=== PATIENT | male | born 1945 | race Caucasian/White ===

== ENCOUNTER 2017-12-12 08:18 | Inpatient (IN) | payer MEDICARE, MEDICAID ==
[~2017-12-12] VITALS: Ht 175.3 cm; Wt 69.0 kg
[2017-12-12] MEDS ORDERED: FERR324T4 PO (19:14)
[2017-12-12] MEDS ORDERED: CARD8TAB PO (19:14)
[2017-12-12] MEDS ORDERED: SYMB80AE INH (19:14)
[2017-12-12] MEDS ORDERED: TAMS0.4C4 PO (19:14)
[2017-12-12] MEDS ORDERED: INSULIN PEN (19:14)
[2017-12-13] MEDS ORDERED: METOCLOPRAMIDE HCL 10 MG/2 ML VIAL IV PUSH PRN
[2017-12-13] MEDS ORDERED: PROCHLORPERAZINE 25 MG SUPP RECTAL PRN
[2017-12-13] MEDS ORDERED: NALOXONE HCL 0.4 MG/ML AMP IV PUSH PRN
[2017-12-13] MEDS ORDERED: DEXTROSE 50% IN WATER 50 ML VIAL(D50) IV PUSH PRN (00:15)
[2017-12-13] MEDS ORDERED: GLUCAGON 1 MG/ML VIAL OTHER PRN (00:15)
[2017-12-13] MEDS ORDERED: RESP: ALBUTEROL 2.5 MG/IPRATROPIUM 0.5 MG NEB (PRN) NEB (00:15)
[2017-12-13 08:00] VITALS: BP 99/69; PULSE 91; RESP 18; TEMP 96.9; O2SAT 95
[2017-12-13] MEDS: INSULIN ASPART SUPPLEMENTAL SCALE SQ SCH ×4 (09:24→21:00)
[2017-12-13] MEDS: SODIUM CHLORIDE 0.9% FLUSH 10 ML FLUSH IV FLUSH SCH ×2 (09:25→21:56)
--- NOTE | 2017-12-13 10:31 | HHI.HP ---
HPI Service [facility] Hospitalists Primary Care Physician Unknown Admission Diagnosis Diagnoses: Travel History International Travel<30 Days: No Contact w/Intl Traveler <30 Da: No Traveled to Known Affected Are: No History of Present Illness History from patient, ER physician notes, interview of medical records. Patient reported that he came to the hospital because he has been throwing up a , about 8-9 times a day for the past 3 days. He reports that his vomitus was brown in color. Denies any abdominal pain but then stated that he has severe discomfort in his abdomen. He kept stating that he can't stand the pain that he just cannot stand discomfort in his abdomen. He reports of headache. He was hiccuping during my interview as well. He denies any diarrhea. Denies any blood in his stool or in his urine. He reports that his last bowel movement was about 2 days ago. He then stated again that he was constipated for the past 5-6 days and finally his knees gave him laxatives after which he moved his bowels 2 days ago. Patient denies any fever. Denies dyspnea. Denies any chest pain/palpitations/syncopal episodes. He then sometimes stated that he has been weak and he is dizzy because of this. Denies any pain or burning on urination. He reports of frequent urination and that he cannot control his urine. He has been incontinence. He states that he has been in diapers because of this for the past 3 months since he had his right hip fracture. He states he used to smoke about 2 packs a day but now smoking only about 2 cigarettes a week. He reports a chronic cough which is intermittent and mild. Reports of history of lung cancer for which he was getting treated. He states that he has been well for the past 3 months and last dose of chemotherapy was 3 months ago. Patient initially presented to [place] emergency room. He was transferred from there to [facility] for further workup. Review of Systems Except as stated in HPI: all other systems reviewed are Neg Past Family Social History Past Medical History dm copd not on home oxygen hx of lung cancer ,right side- s/p chemo and radiation- last dose was 3 months ago; Dr Agustin in [place] [facility] Past Surgical History ankle fx sx years ago lung biopsy/ bronchoscopy Allergies: Coded Allergies: No Known Drug Allergies (Verified Allergy, Unknown, 12/12/17) Family History father - dm Social History used to smoke 2ppd, now only 2 cigarettes a week if that no etoh abuse no drugs lives with his nephew and his family no longer driving Physical Exam Vital Signs Vital Signs Date Time Temp Pulse Resp B/P (MAP) Pulse Ox O2 Delivery O2 Flow Rate FiO2 12/13/17 08:00 96.9 91 18 99/69 (79) 95 Physical Exam GENERAL: This is a well-nourished, well-developed patient, in no apparent distress. Pleasant elderly gentleman SKIN: No rashes, ecchymoses or lesions. Cool and dry. HEAD: Atraumatic. Normocephalic. No temporal or scalp tenderness. EYES: No scleral icterus. No injection or drainage. ENT: Nose without bleeding, purulent drainage or septal hematoma. Airway patent. NECK: Trachea midline. No JVD CARDIOVASCULAR: Regular rate and rhythm without murmurs, gallops, or rubs. RESPIRATORY: Clear to auscultation. Breath sounds equal bilaterally. No wheezes , rales, or rhonchi. GASTROINTESTINAL: Abdomen soft, tenderness at epigastric and lower mid abdomen. , nondistended. No guarding. MUSCULOSKELETAL: Extremities without clubbing, cyanosis, or edema. No calf tenderness. NEUROLOGICAL: Awake and alert. Motor and sensory grossly within normal limits. Normal speech. Imaging CT: 1. Small to moderate right-sided pleural effusion with dense consolidation in the right perihilar region. 2. Severe coronary artery calcifications. 3. Gastric distention with large air-fluid level. Previous cholecystectomy without biliary ductal dilatation. No obstruction. Caprini VTE Risk Assessment Caprini VTE Risk Assessment: Mod/High Risk (score >= 2) Caprini Risk Assessment Model Point Value = 1 Point Value = 2 Point Value = 3 Point Value = 5 Age 41-60 Minor surgery BMI > 25 kg/m2 Swollen legs Varicose veins or History of unexplained or recurrent spontaneous Oral contraceptives or hormone replacement Sepsis (< 1 month) Serious lung disease, including pneumonia (< 1 month) Abnormal pulmonary function Acute myocardial infarction Congestive heart failure (< 1 month) History of inflammatory bowel disease Medical patient at bed rest Age 61-74 Arthroscopic surgery Major open surgery (> 45 min) Laparoscopic surgery (> 45 min) Malignancy Confined to bed (> 72 hours) Immobilizing plaster cast Central venous access Age >= 75 History of VTE Family history of VTE Factor V Leiden Prothrombin [id number] Lupus anticoagulant Anticardiolipin antibodies Elevated serum homocysteine Heparin-induced thrombocytopenia Other congenital or acquired thrombophilia Stroke (< 1 month) Elective arthroplasty Hip, pelvis, or leg fracture Acute spinal cord injury (< 1 month) Prophylaxis Regimen Total Risk Factor Score Risk Level Prophylaxis Regimen 0-1 Low Early ambulation 2 Moderate Order ONE of the following: *Sequential Compression Device (SCD) *Heparin 5000 units SQ BID 3-4 Higher Order ONE of the following medications: *Heparin 5000 units SQ TID *Enoxaparin/Lovenox 40 mg SQ daily (WT < 150 kg, CrCl > 30 mL/min) *Enoxaparin/Lovenox 30 mg SQ daily (WT < 150 kg, CrCl > 10-29 mL/min) *Enoxaparin/Lovenox 30 mg SQ BID (WT < 150 kg, CrCl > 30 mL/min) AND/OR *Sequential Compression Device (SCD) 5 or more Highest Order ONE of the following medications: *Heparin 5000 units SQ TID (Preferred with Epidurals) *Enoxaparin/Lovenox 40 mg SQ daily (WT < 150 kg, CrCl > 30 mL/min) *Enoxaparin/Lovenox 30 mg SQ daily (WT < 150 kg, CrCl > 10-29 mL/min) *Enoxaparin/Lovenox 30 mg SQ BID (WT < 150 kg, CrCl > 30 mL/min) AND *Sequential Compression Device (SCD) Assessment and Plan Assessment and Plan Impression: pneumonia in lung cancer patient right pleural effusion-parapneumonic versus malignant abdominal pain/nausea/vomiting with gastric distension and large air fluid level - ileus versus obstruction dm copd not on home oxygen hx of lung cancer ,right side- s/p chemo and radiation- last dose was 3 months ago; Dr Agustin in [place] [facility] Plan: npo iv hydration- gentle hydration pain control - avoid overuse of opiates in ileus cefepime iv azitrhomax gi evaluation US chest for pleural fluid thoracocentesis will need diagnostic tap GI eval for ileus/ gastric distension dvt prophylaxis with lovenox post procedures Discussed Condition With patient Mariola Garcia MD Dec 13, 2017 10:31
[2017-12-13 12:00] VITALS: BP 99/70; PULSE 96; RESP 18; TEMP 96.9; O2SAT 97
--- NOTE | 2017-12-13 12:04 | RADRPT ---
EXAM DATE/TIME: 12/13/2017 11:43 [place] COMPARISON: No previous studies available for comparison. INDICATIONS : Right pleural fluid. MEDICAL HISTORY : Chronic obstructive pulmonary disease. Carcinoma, lung. Diabetes. SURGICAL HISTORY : Right hip and leg surgery. Chemotherapy. Radiation therapy. ENCOUNTER: Initial ACUITY: 1 day PAIN SCORE: 5/10 LOCATION: Right chest MEASUREMENTS: SKIN TO PARIETAL PLEURA: 1.8 cm SKIN TO MAX SAFE DEPTH: 3.3 cm ESTIMATED FLUID VOLUME: 340 cc FLUID COMPOSITION: simple FINDINGS: Pleural effusion as above. CONCLUSION: Right pleural effusion confirmed sonographically and measured/marked for thoracentesi s. Hitesh Breen MD on December 13, 2017 at 12:01 Board Certified Radiologist. This report was verified electronically.
[2017-12-13] MEDS: DEXT 5%-NACL 0.9% 1000 ML INJ 1,000 ML IV SCH (12:08)
[2017-12-13] MEDS: CEFEPIME INJ 2,000 MG in SODIUM CHLORIDE 0.9% INJ 100 ML IV SCH ×2 (12:09→22:02)
[2017-12-13 15:30] LABS: AUTOMATED NEUTROPHIL # 9.6 TH/MM3 (1.8-7.7); BASOPHIL # 0.1 TH/MM3 (0-0.2); BASOPHIL % 0.9 % (0.0-2.0); EOSINOPHIL # 0.2 TH/MM3 (0-0.4); EOSINOPHIL % 1.4 % (0.0-4.0); HEMATOCRIT 42.8 % (39.0-51.0); HEMOGLOBIN 13.8 GM/DL (13.0-17.0); LYMPH % 13.8 % (9.0-44.0); LYMPHOCYTE # 1.7 TH/MM3 (1.0-4.8); MEAN CELL VOLUME 81.5 FL (80.0-100.0); MEAN CORPUSCULAR HEMOGLOBIN 26.2 PG (27.0-34.0); MEAN CORPUSCULAR HGB CONC 32.2 % (32.0-36.0); MEAN PLATELET VOLUME 7.5 FL (7.0-11.0); MONO % 6.5 % (0.0-8.0); MONOCYTE # 0.8 TH/MM3 (0-0.9); NEUT % 77.4 % (16.0-70.0); PLATELET COUNT 251 TH/MM3 (150-450); RED BLOOD COUNT 5.26 MIL/MM3 (4.50-5.90); RED CELL DISTRIBUTION WIDTH 15.2 % (11.6-17.2); WHITE BLOOD COUNT 12.4 TH/MM3 (4.0-11.0)
[2017-12-13 15:34] LABS: CHLORIDE 106 MEQ/L (98-107); SODIUM (NA) 138 MEQ/L (136-145)
[2017-12-13 15:37] LABS: CALCIUM 8.4 MG/DL (8.5-10.1); INTERNATIONAL NORMALIZED RATIO 1.1 RATIO; PROTHROMBIN TIME - PATIENT 11.1 SEC (9.8-11.6)
[2017-12-13 15:38] LABS: ALBUMIN 3.1 GM/DL (3.4-5.0); BLOOD UREA NITROGEN 18 MG/DL (7-18); GLUCOSE,RANDOM 123 MG/DL (74-106)
[2017-12-13 15:41] LABS: ALT (GPT) 17 U/L (12-78); AST (GOT) 22 U/L (15-37); GLOMERULAR FILTRATION RATE 74 ML/MIN (>89)
[2017-12-13 15:43] LABS: TOTAL BILIRUBIN ADULT 0.7 MG/DL (0.2-1.0); TOTAL PROTEIN 6.8 GM/DL (6.4-8.2)
[2017-12-13 15:44] LABS: ALKALINE PHOSPHATASE 116 U/L (45-117)
[2017-12-13 16:00] VITALS: BP 100/66; PULSE 94; RESP 20; TEMP 96.9; O2SAT 95
--- NOTE | 2017-12-13 18:38 | PD.CONS ---
HPI History of Present Illness This is a 72 year old male who was admitted to the hospital today with history of worsening nausea vomiting the last 3 days. He denied any history of associated abdominal pain heartburn dysphagia hematemesis melena hematochezia constipation diarrhea jaundice ascites edema anorexia or weight loss. 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 PFSH Past Medical History dm copd not on home oxygen hx of lung cancer ,right side- s/p chemo and radiation- last dose was 3 months ago; Dr Agustin in [place] [facility] History of peptic ulcer disease Past Surgical History ankle fx sx years ago lung biopsy/ bronchoscopy Coded Allergies: No Known Drug Allergies (Verified Allergy, Unknown, 12/12/17) Medications As per nursing MAR Family History father - dm Social History used to smoke 2ppd, now only 2 cigarettes a week if that no etoh abuse no drugs lives with his nephew and his family no longer driving Review of Systems Gastrointestinal: COMPLAINS OF: Nausea, Vomiting, DENIES: Abdominal pain, Black stools, Bloody stools, Constipation, Diarrhea, Difficulty Swallowing, Anorexia, Odynophagia, Swelling of Abdomen, Heartburn, Hematemesis GI Exam Vitals I&O Vital Signs Date Time Temp Pulse Resp B/P (MAP) Pulse Ox O2 Delivery O2 Flow Rate FiO2 12/13/17 16:00 96.9 94 20 100/66 (77) 95 12/13/17 12:00 96.9 96 18 99/70 (80) 97 12/13/17 08:00 96.9 91 18 99/69 (79) 95 I/O 12/12/17 12/12/17 12/12/17 12/13/17 12/13/17 12/13/17 07:00 15:00 23:00 07:00 15:00 23:00 Intake Total 100 ml 252 ml Balance 100 ml 252 ml Intake Oral 0 ml IV Total 100 ml 252 ml # Voids 1 1 Laboratory Test 12/13/17 15:04 White Blood Count 12.4 TH/MM3 Red Blood Count 5.26 MIL/MM3 Hemoglobin 13.8 GM/DL Hematocrit 42.8 % Mean Corpuscular Volume 81.5 FL Mean Corpuscular Hemoglobin 26.2 PG Mean Corpuscular Hemoglobin Concent 32.2 % Red Cell Distribution Width 15.2 % Platelet Count 251 TH/MM3 Mean Platelet Volume 7.5 FL Neutrophils (%) (Auto) 77.4 % Lymphocytes (%) (Auto) 13.8 % Monocytes (%) (Auto) 6.5 % Eosinophils (%) (Auto) 1.4 % Basophils (%) (Auto) 0.9 % Neutrophils # (Auto) 9.6 TH/MM3 Lymphocytes # (Auto) 1.7 TH/MM3 Monocytes # (Auto) 0.8 TH/MM3 Eosinophils # (Auto) 0.2 TH/MM3 Basophils # (Auto) 0.1 TH/MM3 CBC Comment DIFF FINAL Differential Comment Prothrombin Time 11.1 SEC Prothromb Time International Ratio 1.1 RATIO Activated Partial Thromboplast Time 28.9 SEC Blood Urea Nitrogen 18 MG/DL Creatinine 1.00 MG/DL Random Glucose 123 MG/DL Total Protein 6.8 GM/DL Albumin 3.1 GM/DL Calcium Level 8.4 MG/DL Alkaline Phosphatase 116 U/L Aspartate Amino Transf (AST/SGOT) 22 U/L Alanine Aminotransferase (ALT/SGPT) 17 U/L Total Bilirubin 0.7 MG/DL Sodium Level 138 MEQ/L Potassium Level 4.1 MEQ/L Chloride Level 106 MEQ/L Carbon Dioxide Level 24.0 MEQ/L Anion Gap 8 MEQ/L Estimat Glomerular Filtration Rate 74 ML/MIN Physical Examination HEENT: Pupils round and reactive to light; normocephalic; atraumatic; no jaundice. Throat is clear. NECK: Neck is supple, no JVD, no lymphadenopathy. CHEST: Scattered rales and rhonchi heard at both bases CARDIAC: Regular rate and rhythm with no murmur gallop or rubs. ABDOMEN: Soft, nondistended, nontender; no hepatosplenomegaly; bowel sounds are present in all four quadrants. EXTREMITIES: No clubbing, cyanosis, or edema. SKIN: Normal; no rash; no jaundice. SCUBA DIVE TRAINING INSTRUCTOR: No focal deficits; alert and oriented times three. Assessment and Plan Assessment: (1) Gastric out let obstruction ICD Codes: K31.1 - Adult hypertrophic pyloric stenosis (2) Gastroparesis ICD Codes: K31.84 - Gastroparesis Plan 1. Patient symptoms and CT scan findings are suggestive of possibility of gastroparesis or gastric outlet obstruction. 2.In view of past history of small cell lung cancer, the gastroparesis may be related to paraneoplastic syndrome 3. Gastric outlet obstruction possible in view of past history of peptic ulcer disease. Metastases to be stomach is also possible 4. Strict n.p.o. 5. Schedule EGD in the a.kal. Surjit Trejo MD Dec 13, 2017 18:38
[2017-12-13 20:00] VITALS: BP 109/65; PULSE 101; RESP 17; TEMP 97.1; O2SAT 93
[2017-12-13] MEDS: BUDESONIDE-FORMOTEROL 80/4.5 MCG INHALER INH SCH (21:56)
[2017-12-13] MEDS: TAMSULOSIN HCL 0.4 MG CAP PO SCH (21:58)
[2017-12-14] VITALS (7 sets, daily range): BP systolic 90–124; BP diastolic 67–78; PULSE 84–99; RESP 16–20; TEMP 96.6–97.7; O2SAT 95–98
[2017-12-14] MEDS: INSULIN ASPART SUPPLEMENTAL SCALE SQ SCH ×4 (07:53→21:24)
--- NOTE | 2017-12-14 08:28 | MB ---
cc: Jordi Altamirano MD DATE: 12/13/2017 REQUESTING PHYSICIAN: Dr. Garcia REASON FOR CONSULTATION: Evaluate for pneumonia and pleural effusion. HISTORY OF PRESENT ILLNESS: Mr. Estes is a pleasant 72-year-old white male with a history of small cell carcinoma of the lung. He received chemotherapy and 15 radiation treatments to the brain . He came with complaint of nausea and vomiting for the last 2 or 3 days and he has abdominal pain. Did not have any fever or chills, no night sweat. No cough or sputum production. The patient was evaluated in the emergency room. He had a chest x-ray done, which shows he has mass-like consolidation in the right perihilar area. A small right pleural effusion. His CBC shows WBC count 12.4, hemoglobin 13.8, hematocrit 42.8, MCV 81, platelet count 251. Sodium 138, potassium 4.1, chloride 106, CO2 24, BUN 18, creatinine 1.0. INR is 1.1. He has no more nausea, vomiting. Denies any shortness of breath. No fever. PAST MEDICAL HISTORY: Small cell carcinoma of the lung, status post chemotherapy and radiation treatment, history of right shoulder surgery, left hip surgery, history of possible COPD. MEDICATIONS: He is currently taking Lovenox 40 mg, Zithromax 500 mg a day, Symbicort twice a day, cefepime 2 gram every 12 hours, albuterol/Atrovent nebulizer treatment, Reglan 5 mg p.r.n. ALLERGIES: NO KNOWN DRUG ALLERGIES. SOCIAL HISTORY: He is , worked in construction. He has a history of smoking up to 3 packs a day, which he cut down to few cigarettes a day. No alcohol abuse. FAMILY HISTORY: Has 2 grown children. He lives with his [id number]. REVIEW OF SYSTEMS: Normally, he is up and active. Has lost some weight. No DVT or pulmonary embolism. No seizure, epilepsy. PHYSICAL EXAMINATION: GENERAL: Elderly male, not in acute distress, feels hungry, wants to eat something. VITAL SIGNS: Blood pressure 99/70, heart rate 96, respirations 18, temperature 96.9. HEENT: Pupils are equal and reactive to light. Oral mucosa and nasal mucosa normal. NECK: Supple. JVD not raised. CHEST: Equal bilaterally. No rhonchi. CARDIOVASCULAR: S1, S2 normal. ABDOMEN: Benign. EXTREMITIES: No edema. CENTRAL NERVOUS SYSTEM: Alert and oriented x 3, no focal deficit. IMPRESSION: 1. Right perihilar infiltrate. 2. Small right pleural effusion. 3. Chronic obstructive pulmonary disease. 4. Nicotine use. 5. History of small cell carcinoma of the lung, status post chemotherapy and radiation treatment. 6. Nausea, vomiting has resolved. PLAN: We will continue antibiotics, cefepime and Zithromax. He is given aerosol treatment. He is stable on room air. Pleural effusion rather small and he is asymptomatic. We will monitor it. If pleural effusion increases or if there is any fever, concern for infection, then he will need thoracentesis. Further treatment depending on the course in the hospital. Thank you, Dr. Garcia, for this consult. MD JOSEPHINE Al/TAPAN , 06:11 PM , 06:[address]
[2017-12-14] MEDS ORDERED: DOXAZOSIN 8 MG PO SCH (09:00)
[2017-12-14] MEDS ORDERED: ENOXAPARIN SODIUM 40 MG/0.4 ML SYRINGE SQ SCH (09:00)
--- NOTE | 2017-12-14 09:03 | RADRPT ---
EXAM DATE/TIME: 12/14/2017 08:00 INDICATIONS : Right pleural effusion. DEVICE(S): 1.) 6 Fr [id number] FLUID: Total volume of 575 cc of clear, yellow fluid was removed. Fluid was sent for laboratory ordered studies. MEDICAL HISTORY : Carcinoma, lung. Diabetes mellitus type 2. Chronic obstructive pulmonary disease. SURGICAL HISTORY : None. ENCOUNTER: Initial ACUITY: 1 day PAIN SCORE: 0/10 LOCATION: Right chest PROCEDURE: 1. CT guided right thoracentesis. The site was prepped in sterile fashion. Full sterile technique was used, including cap, mask, steri le gloves and gown and a large sterile sheet. Hand hygiene and 2% chlorhexidine and/or betadine/alco hol prep was utilized per protocol for cutaneous antisepsis. The skin and subcutaneous tissues were infiltrated with local anesthetic solution. Using automated exposure control and adjustment of the mA and/or kV according to patient size, radiation dose was kept as low as reasonably achievable to obta in optimal diagnostic quality images. DICOM format image data is available electronically for review and comparison. With the patient supine on the CT table, housekeeping and laundry team leader images were obtained through the chest demonstrating t he right sided pleural effusion. Dermatotomy was made and the prescribed catheter was advanced into the pleural fluid. The pleural fluid as above was removed from the hemithorax. Post procedural scan show reduction in the amount of fluid with no evidence of pneumothorax. The patient tolerated the procedure well and there were no complications. EKG and oximetry remained s table throughout the procedure. The patient was sent to recovery in stable condition. CONCLUSION: Uncomplicated CT-guided thoracentesis. Jluis Paulson MD on December 14, 2017 at 9:00 Board Certified Radiologist. This report was verified electronically.
--- NOTE | 2017-12-14 09:08 | HHI.PR ---
Subjective Remarks Patient seen and examined today for follow-up on right lung mass, gastric outlet obstruction, pleural effusion. Patient has successfully undergone thoracentesis. He is awaiting EGD for evaluation of his gastric outlet obstruction. He states he is hungry and he wants to eat. Otherwise he denies any other complaints. Vital signs are stable, patient is afebrile Objective Vitals Vital Signs Date Time Temp Pulse Resp B/P (MAP) Pulse Ox O2 Delivery O2 Flow Rate FiO2 12/14/17 00:00 97.7 99 18 115/68 (84) 95 12/13/17 20:00 97.1 101 17 109/65 (80) 93 12/13/17 16:00 96.9 94 20 100/66 (77) 95 12/13/17 12:00 96.9 96 18 99/70 (80) 97 I/O 12/13/17 12/13/17 12/13/17 12/14/17 12/14/17 12/14/17 07:00 15:00 23:00 07:00 15:00 23:00 Intake Total 100 ml 352 ml 458 ml Balance 100 ml 352 ml 458 ml Intake Oral 0 ml IV Total 100 ml 352 ml 458 ml # Voids 1 1 2 Result Diagram: 12/13/17 1504 12/13/17 1504 Objective Remarks GENERAL: Well-developed, cachectic, in no acute distress. alert and orientated HEENT: Head is normocephalic without any lesions or masses noted. Facial features are symmetric. Eyes: Extraocular muscles are intact. Conjunctivae were clear. NECK: Supple without any masses. Trachea midline no deviation. No JVD, CARDIAC: Regular rhythm, regular rate. S1/S2 are heard. No murmurs gallops or rubs. LUNGS: Clear to auscultation bilaterally. No wheeze, rhonchi or rales. No use of accessory muscles on inspiration or expiration. ABDOMEN: Soft, nontender. Nondistended. Bowel sounds heard in all 4 quadrants. No organomegaly or masses. Negative rebound, negative guarding EXTREMITIES: No edema, pulses are equal bilaterally. No cyanosis or clubbing NEUROLOGY: Mood and affect appear appropriate. Cranial nerves II through XII grossly intact. Moving all extremities, speech is clear Urinary Catheter: No Vascular Central Line Catheter: No A/P Assessment and Plan Right lung masslike consolidation with history of lung carcinoma CT of the abdomen does indicate moderate size right pleural effusion with atelectasis compression Status post thoracentesis By light's criteria patient has exudative pleural effusion, possible empyema versus cancer Continue cefepime, Zithromax Crop Or Livestock Tenant Farmer following the patient Gastric outlet obstruction Possible paraneoplastic syndrome GI following the patient Plans for EGD today for evaluation and treatment Chronic obstructive pulmonary disease Continue O2 supplementation maintain O2 sats greater 92% Continue Symbicort Continue duo nebs Diabetes Accu-Cheks with sliding scale insulin Physical deconditioning Physical therapy evaluated patient and recommending rehabilitation facility DVT prevention Sequential compression devices Discharge Planning Case management consulted for rehabilitation placement. Patient has been [facility]. Awaiting clearance from coating machine operator helper and traffic division commanding officer Alexis Huntley Dec 14, 2017 09:08
[2017-12-14] MEDS: AZITHROMYCIN 250 MG TAB PO SCH (09:20)
[2017-12-14] MEDS: BUDESONIDE-FORMOTEROL 80/4.5 MCG INHALER INH SCH ×2 (09:21→21:25)
[2017-12-14] MEDS: SODIUM CHLORIDE 0.9% FLUSH 10 ML FLUSH IV FLUSH SCH ×2 (09:21→21:25)
[2017-12-14] MEDS: FERROUS SULFATE 325 MG (65 MG ELEMENTAL IRON) TAB PO SCH (09:21)
[2017-12-14] MEDS ORDERED: PNEUMOCOCCAL POLYVALENT INJ 25 MCG/0.5 ML SYR IM ONE (10:00)
[2017-12-14] MEDS ORDERED: INFLUENZA VIRUS VACCINE (QUADRIVALENT) 0.5 ML SYR IM ONE (10:00)
[2017-12-14 10:04] LABS: PLEURAL FLUID RBC 210 /MM3 (0-0); PLEURAL FLUID WBC 5300 /MM3 (0-10)
[2017-12-14 10:39] LABS: TOTAL PROTEIN,PLEURAL FLUID 4.6 GM/DL
[2017-12-14] MEDS: CEFEPIME INJ 2,000 MG in SODIUM CHLORIDE 0.9% INJ 100 ML IV SCH ×2 (11:12→22:52)
[2017-12-14 11:17] LABS: PLEURAL FLUID LYMPHS 12 %; PLEURAL FLUID MESOTHELIAL 8 %; PLEURAL FLUID MONOS 4 %; PLEURAL FLUID POLYS (SEGS) 76 %
[2017-12-14] MEDS: DEXT 5%-NACL 0.9% 1000 ML INJ 1,000 ML IV SCH (14:55)
[2017-12-14] MEDS ORDERED: POVIDONE IODINE 5% (ANTISEPSIS KIT) 4 APPLICATIONS EACH NARE PRN (17:30)
[2017-12-14] MEDS ORDERED: CHLORHEXIDINE GLUCONATE 2 % 1 PACK (2 CLOTHS) TOPICAL PRN (17:30)
[2017-12-14] MEDS ORDERED: INSULIN HUMAN REGULAR 1,000 UNITS/10 ML VIAL SQ PRN (17:30)
[2017-12-14] MEDS ORDERED: SODIUM CHLORID 0.9% 500 ML IV PRN (17:30)
[2017-12-14] MEDS ORDERED: METOPROLOL TARTRATE 25 MG TAB PO PRN (17:30)
[2017-12-14] MEDS ORDERED: LACTATED RINGER'S 1000 ML IV PRN (17:30)
[2017-12-14] MEDS: TAMSULOSIN HCL 0.4 MG CAP PO SCH (21:26)
--- NOTE | 2017-12-14 21:55 | HHI.PR ---
Subjective Remarks 72 YOWM with metastatic ca, COPD, Pl eff had TC Breathing better feels hungry Objective Vital Signs Vital Signs Date Time Temp Pulse Resp B/P (MAP) Pulse Ox O2 Delivery O2 Flow Rate FiO2 12/14/17 17:45 96.7 84 20 116/78 (91) 98 12/14/17 17:24 82 16 95/67 (76) 100 12/14/17 17:14 78 18 86/57 (67) 100 12/14/17 17:14 Nasal Cannula 12/14/17 17:04 97.5 77 16 93/52 (66) 100 12/14/17 17:04 Nasal Cannula 3 12/14/17 15:37 12/14/17 15:37 96.6 88 18 90/69 (76) 96 12/14/17 11:50 96.6 88 20 90/69 (76) 96 12/14/17 11:14 85 18 93/71 (78) 98 12/14/17 09:19 96.8 85 18 94/71 (79) 95 12/14/17 07:50 96.6 85 20 91/67 (75) 97 12/14/17 00:00 97.7 99 18 115/68 (84) 95 I/O 12/13/17 12/13/17 12/13/17 12/14/17 12/14/17 12/14/17 07:00 15:00 23:00 07:00 15:00 23:00 Intake Total 100 ml 352 ml 458 ml 394 ml 1642 ml Balance 100 ml 352 ml 458 ml 394 ml 1642 ml Intake Oral 0 ml 0 ml IV Total 100 ml 352 ml 458 ml 394 ml 942 ml Other 700 ml # Voids 1 1 2 1 12 # Bowel Movements 0 Result Diagram: 12/13/17 1504 12/13/17 1504 Objective Remarks GENERAL: MBMN WM, NAD SKIN: Warm and dry. HEAD: Normocephalic. EYES: No scleral icterus. No injection or drainage. NECK: Supple, trachea midline. No JVD or lymphadenopathy. CARDIOVASCULAR: Regular rate and rhythm without murmurs, gallops, or rubs. RESPIRATORY: Breath sounds equal bilaterally. No accessory muscle use. GASTROINTESTINAL: Abdomen soft, non-tender, nondistended. MUSCULOSKELETAL: No cyanosis, or edema. BACK: Nontender without obvious deformity. No CVA tenderness. A/P Assessment and Plan IMPRESSION: 1. Right perihilar infiltrate. 2. Small right pleural effusion. 3. Chronic obstructive pulmonary disease. 4. Nicotine use. 5. History of small cell carcinoma of the lung, status post chemotherapy and radiation treatment. 6. Nausea, vomiting has resolved. PLAN: Aerosol nebs Cont Abx Stable on RA Ccheck pl fluid results Jordi Altamirano MD Dec 14, 2017 21:55
--- NOTE | 2017-12-14 22:39 | EKG ---
Date Performed: 12/13/2017 Time Performed: 21:28:19 PTAGE: 72 years EKG: Sinus rhythm INDETERMINATE AXIS RIGHT BUNDLE BRANCH BLOCK ABNORMAL ECG Since the PREVIOUS TRACING , no significant change noted DOCTOR: Jovani Newell Interpretating Date/Time 12/14/2017 22:38:22
[2017-12-14] MEDS: SODIUM CHLORIDE 0.9% FLUSH 10 ML FLUSH IV FLUSH PRN (22:52)
[2017-12-15] VITALS (8 sets, daily range): BP systolic 90–96; BP diastolic 51–61; PULSE 79–91; RESP 16–20; TEMP 96.5–98.7; O2SAT 93–98
[2017-12-15] MEDS: INSULIN ASPART SUPPLEMENTAL SCALE SQ SCH ×4 (08:00→20:42)
[2017-12-15] MEDS: AZITHROMYCIN 250 MG TAB PO SCH (09:00)
--- NOTE | 2017-12-15 09:33 | HHI.PR ---
Subjective Remarks Patient seen and examined today for follow-up on right lung mass, gastric outlet obstruction, pleural effusion. Patient resting in bed comfortably. Blood pressure on the low side, patient afebrile. Objective Vitals Vital Signs Date Time Temp Pulse Resp B/P (MAP) Pulse Ox O2 Delivery O2 Flow Rate FiO2 12/15/17 08:00 96.7 91 16 90/54 (66) 94 12/15/17 00:00 98.7 85 16 95/51 (66) 94 12/14/17 20:00 97.5 91 16 124/73 (90) 95 12/14/17 17:45 96.7 84 20 116/78 (91) 98 12/14/17 17:24 82 16 95/67 (76) 100 12/14/17 17:14 78 18 86/57 (67) 100 12/14/17 17:14 Nasal Cannula 12/14/17 17:04 97.5 77 16 93/52 (66) 100 12/14/17 17:04 Nasal Cannula 3 12/14/17 15:37 12/14/17 15:37 96.6 88 18 90/69 (76) 96 12/14/17 11:50 96.6 88 20 90/69 (76) 96 12/14/17 11:14 85 18 93/71 (78) 98 I/O 12/14/17 12/14/17 12/14/17 12/15/17 12/15/17 12/15/17 07:00 15:00 23:00 07:00 15:00 23:00 Intake Total 458 ml 394 ml 1642 ml 636 ml Output Total 500 ml Balance 458 ml 394 ml 1642 ml 136 ml Intake Oral 0 ml IV Total 458 ml 394 ml 942 ml 636 ml Other 700 ml Output Urine Total 500 ml # Voids 2 1 12 2 # Bowel Movements 0 Result Diagram: 12/13/17 1504 12/13/17 1504 Objective Remarks GENERAL: Well-developed, cachectic, in no acute distress. alert and orientated HEENT: Head is normocephalic without any lesions or masses noted. Facial features are symmetric. Eyes: Extraocular muscles are intact. Conjunctivae were clear. NECK: Supple without any masses. Trachea midline no deviation. No JVD, CARDIAC: Regular rhythm, regular rate. S1/S2 are heard. No murmurs gallops or rubs. LUNGS: Clear to auscultation bilaterally. No wheeze, rhonchi or rales. No use of accessory muscles on inspiration or expiration. ABDOMEN: Soft, nontender. Nondistended. Bowel sounds heard in all 4 quadrants. No organomegaly or masses. Negative rebound, negative guarding EXTREMITIES: No edema, pulses are equal bilaterally. No cyanosis or clubbing NEUROLOGY: Mood and affect appear appropriate. Cranial nerves II through XII grossly intact. Moving all extremities, speech is clear Urinary Catheter: Yes Assessment to: Continue Seaman insert reason: Measure Accurate Output Vascular Central Line Catheter: No A/P Assessment and Plan Right lung masslike consolidation with history of lung carcinoma CT of the abdomen does indicate moderate size right pleural effusion with atelectasis compression Status post thoracentesis By light's criteria patient has exudative pleural effusion, possible empyema versus cancer Awaiting fluid results for further plans Continue cefepime, Zithromax Case Aide following the patient Gastric outlet obstruction Possible paraneoplastic syndrome GI following the patient Endoscopy was performed which did show severe erosive gastritis, pyloric stenosis Plans for upper GI series today, gastric emptying study tomorrow to evaluate treatment options for pyloric stenosis Chronic obstructive pulmonary disease Continue O2 supplementation maintain O2 sats greater 92% Continue Symbicort Continue duo nebs Diabetes Accu-Cheks with sliding scale insulin Physical deconditioning Physical therapy evaluated patient and recommending rehabilitation facility DVT prevention Sequential compression devices Discharge Planning Case management consulted for rehabilitation placement. Patient has been accepted at [facility]. Awaiting clearance from senior business analyst and church secretary Alexis Huntley Dec 15, 2017 09:33
[2017-12-15] MEDS: FERROUS SULFATE 325 MG (65 MG ELEMENTAL IRON) TAB PO SCH (10:10)
[2017-12-15] MEDS: SODIUM CHLORIDE 0.9% FLUSH 10 ML FLUSH IV FLUSH SCH ×2 (10:11→20:42)
[2017-12-15] MEDS: BUDESONIDE-FORMOTEROL 80/4.5 MCG INHALER INH SCH ×2 (10:11→20:41)
[2017-12-15] MEDS: CEFEPIME INJ 2,000 MG in SODIUM CHLORIDE 0.9% INJ 100 ML IV SCH ×2 (11:48→22:31)
[2017-12-15] MEDS: DEXT 5%-NACL 0.9% 1000 ML INJ 1,000 ML IV SCH (13:30)
--- NOTE | 2017-12-15 14:46 | RADRPT ---
EXAM DATE/TIME: 12/15/2017 14:04 [facility] COMPARISON: No previous studies available for comparison. INDICATIONS : Nausea, vomiting, abdomen pain, pyloric stenosis. FLUORO TIME: 1.9 minutes IMAGE COUNT: 28 CONTRAST: 1. Liquid E-Z Paque Barium Sulfate (60% w/v, 41% w.w) MEDICAL HISTORY : Chronic obstructive pulmonary disease. Diabetes mellitus type 2. Carcinoma, lung.gastritis SURGICAL HISTORY : Cholecystectomy. Right sided port placement ENCOUNTER: Subsequent ACUITY: 4 - 6 days PAIN SCORE: 2/10 LOCATION: abdomen FINDINGS: Preliminary film is unremarkable. The stomach is gas-filled but not dilated. Multiple surgical clips within the right upper quadrant likely from cholecystectomy. Gas-filled loops of nondilated large and small bowel. This examination is quite limited secondary to the patient's immobility as well as difficulty with dr inking the barium. Unable to utilize effervescent crystals. The thoracic esophagus is quite limited i n its evaluation particularly within its cephalad extent. The mid and lower thoracic esophagus are gr ossly unremarkable. The volume of barium were able to get the patient to swallow was quite small. The stomach is not dilated. The rugal folds are slightly thickened in a diffuse fashion. No gross ulcera tion or filling defect observed. Overall peristalsis is reduced. There is a delay in emptying of the stomach. There is smooth narrowing of the pylorus. This contributes to the delay as does the reduced peristalsis. The first and second portion the duodenum show diffuse smooth fold thickening. No discre te ulceration or obstructing mass observed. Peristalsis within the duodenum is also quite reduced. Th e mucosal pattern is more normal in appearance within the third portion the duodenum. CONCLUSION: 1. Limited study secondary to the patient's immobility as well as the patient's inability to drink th e barium. 2. Smooth fold thickening involving the first and second portion the duodenum with less pronounced ru gal fold thickening. Differential diagnostic considerations would include an acute inflammatory proce ss involving the stomach and duodenum versus an infiltrating process to include malignancy. I favor t he former. 3. Pyloric stenosis without discrete mass. 4. Global hypokinesia with significant delay in the gastric emptying secondary to the combination of pyloric stenosis as well as the global hypokinesia. Celestino Larios Jr., MD on December 15, 2017 at 14:37 Board Certified Radiologist. This report was verified electronically.
--- NOTE | 2017-12-15 20:38 | HHI.PR ---
Subjective Remarks 72 YOWM with metastatic ca, COPD, Pl eff had TC Breathing better feels hungry Denies sob Objective Vital Signs Vital Signs Date Time Temp Pulse Resp B/P (MAP) Pulse Ox O2 Delivery O2 Flow Rate FiO2 12/15/17 17:18 94 21 12/15/17 16:00 96.7 79 16 96/61 (73) 97 12/15/17 13:58 93 21 12/15/17 12:00 96.5 90 16 94/60 (71) 98 12/15/17 08:00 96.7 91 16 90/54 (66) 94 12/15/17 00:00 98.7 85 16 95/51 (66) 94 I/O 12/14/17 12/14/17 12/14/17 12/15/17 12/15/17 12/15/17 07:00 15:00 23:00 07:00 15:00 23:00 Intake Total 458 ml 394 ml 1642 ml 636 ml 600 ml Output Total 500 ml 450 ml Balance 458 ml 394 ml 1642 ml 136 ml 150 ml Intake Oral 0 ml 600 ml IV Total 458 ml 394 ml 942 ml 636 ml Other 700 ml Output Urine Total 500 ml 450 ml # Voids 2 1 12 2 # Bowel Movements 0 Result Diagram: 12/13/17 1504 12/13/17 1504 Objective Remarks GENERAL: MBMN WM, NAD SKIN: Warm and dry. HEAD: Normocephalic. EYES: No scleral icterus. No injection or drainage. NECK: Supple, trachea midline. No JVD or lymphadenopathy. CARDIOVASCULAR: Regular rate and rhythm without murmurs, gallops, or rubs. RESPIRATORY: Breath sounds equal bilaterally. No accessory muscle use. GASTROINTESTINAL: Abdomen soft, non-tender, nondistended. MUSCULOSKELETAL: No cyanosis, or edema. BACK: Nontender without obvious deformity. No CVA tenderness. A/P Assessment and Plan IMPRESSION: 1. Right perihilar infiltrate. 2. Small right pleural effusion. 3. Chronic obstructive pulmonary disease. 4. Nicotine use. 5. History of small cell carcinoma of the lung, status post chemotherapy and radiation treatment. 6. Nausea, vomiting has resolved. PLAN: Aerosol nebs Cont Abx Stable on RA DC plans underway. Jordi Altamirano MD Dec 15, 2017 20:38
[2017-12-15] MEDS: TAMSULOSIN HCL 0.4 MG CAP PO SCH (20:42)
[2017-12-15] MEDS: SODIUM CHLORIDE 0.9% FLUSH 10 ML FLUSH IV FLUSH PRN (22:32)
[2017-12-16] VITALS: BP 118/63; PULSE 76; RESP 20; TEMP 96.3; O2SAT 98
[2017-12-16 06:31] LABS: AUTOMATED NEUTROPHIL # 4.7 TH/MM3 (1.8-7.7); BASOPHIL % 0.7 % (0.0-2.0); EOSINOPHIL # 0.3 TH/MM3 (0-0.4); EOSINOPHIL % 5.1 % (0.0-4.0); HEMATOCRIT 38.6 % (39.0-51.0); HEMOGLOBIN 12.5 GM/DL (13.0-17.0); LYMPH % 17.8 % (9.0-44.0); LYMPHOCYTE # 1.2 TH/MM3 (1.0-4.8); MEAN CORPUSCULAR HEMOGLOBIN 26.5 PG (27.0-34.0); MEAN CORPUSCULAR HGB CONC 32.3 % (32.0-36.0); MEAN PLATELET VOLUME 7.3 FL (7.0-11.0); MONO % 6.6 % (0.0-8.0); MONOCYTE # 0.4 TH/MM3 (0-0.9); NEUT % 69.8 % (16.0-70.0); PLATELET COUNT 213 TH/MM3 (150-450); RED BLOOD COUNT 4.71 MIL/MM3 (4.50-5.90); WHITE BLOOD COUNT 6.6 TH/MM3 (4.0-11.0)
[2017-12-16 06:49] LABS: CALCIUM 8.2 MG/DL (8.5-10.1)
[2017-12-16 06:50] LABS: BICARBONATE 25.6 MEQ/L (21.0-32.0); MAGNESIUM 1.7 MG/DL (1.5-2.5)
[2017-12-16 06:53] LABS: CREATININE 0.73 MG/DL (0.60-1.30)
[2017-12-16 08:00] VITALS: BP 83/53; PULSE 82; RESP 18; TEMP 97; O2SAT 94
[2017-12-16] MEDS: INSULIN ASPART SUPPLEMENTAL SCALE SQ SCH ×4 (08:00→21:00)
[2017-12-16] MEDS: FERROUS SULFATE 325 MG (65 MG ELEMENTAL IRON) TAB PO SCH (08:13)
[2017-12-16] MEDS: SODIUM CHLORIDE 0.9% FLUSH 10 ML FLUSH IV FLUSH SCH ×2 (08:15→21:46)
[2017-12-16] MEDS: BUDESONIDE-FORMOTEROL 80/4.5 MCG INHALER INH SCH ×2 (08:15→21:46)
--- NOTE | 2017-12-16 09:23 | HHI.PR ---
Subjective Remarks Patient seen and examined today for follow-up on right lung mass, gastric outlet obstruction, pleural effusion. Patient laying in bed comfortably on room air. Patient is stating that he is hungry and wants to eat food. I discussed with him the plans for today for further testing and further recommendations after testing is completed. Vital signs are stable, afebrile Objective Vitals Vital Signs Date Time Temp Pulse Resp B/P (MAP) Pulse Ox O2 Delivery O2 Flow Rate FiO2 12/16/17 00:00 96.3 76 20 118/63 (81) 98 12/15/17 20:45 97 21 12/15/17 20:00 96.5 84 20 91/55 (67) 96 12/15/17 17:18 94 21 12/15/17 16:00 96.7 79 16 96/61 (73) 97 12/15/17 13:58 93 21 12/15/17 12:00 96.5 90 16 94/60 (71) 98 I/O 12/15/17 12/15/17 12/15/17 12/16/17 12/16/17 12/16/17 07:00 15:00 23:00 07:00 15:00 23:00 Intake Total 636 ml 1020 ml 1078 ml Output Total 500 ml 750 ml 950 ml Balance 136 ml 270 ml 128 ml Intake Oral 1020 ml 480 ml IV Total 636 ml 598 ml Output Urine Total 500 ml 750 ml 950 ml # Voids 2 # Bowel Movements 1 0 Result Diagram: 12/16/17 0610 12/16/17 0610 Imaging Last Impressions Upper GI Series 12/15/17 0000 Signed Impressions: Service Date/Time: November 14:04 - CONCLUSION: 1. Limited study secondary to the patient's immobility as well as the patient's inability to drink the barium. 2. Smooth fold thickening involving the first and second portion the duodenum with less pronounced rugal fold thickening. Differential diagnostic considerations would include an acute inflammatory process involving the stomach and duodenum versus an infiltrating process to include malignancy. I favor the former. 3. Pyloric stenosis without discrete mass. 4. Global hypokinesia with significant delay in the gastric emptying secondary to the combination of pyloric stenosis as well as the global hypokinesia. Celestino Larios Jr., MD Thoracentesis 12/14/17 0800 Signed Impressions: Service Date/Time: Thursday, December 14, 2017 08:00 - CONCLUSION: Uncomplicated CT-guided thoracentesis. Jluis Paulson MD Chest Ultrasound 12/13/17 0000 Signed Impressions: Service Date/Time: Wednesday, December 13, 2017 11:43 - CONCLUSION: Right pleural effusion confirmed sonographically and measured/marked for thoracentesis. Hitesh Breen MD Objective Remarks GENERAL: Well-developed, cachectic, in no acute distress. alert and orientated HEENT: Head is normocephalic without any lesions or masses noted. Facial features are symmetric. Eyes: Extraocular muscles are intact. Conjunctivae were clear. NECK: Supple without any masses. Trachea midline no deviation. No JVD, CARDIAC: Regular rhythm, regular rate. S1/S2 are heard. No murmurs gallops or rubs. LUNGS: Clear to auscultation bilaterally. No wheeze, rhonchi or rales. No use of accessory muscles on inspiration or expiration. ABDOMEN: Soft, nontender. Nondistended. Bowel sounds heard in all 4 quadrants. No organomegaly or masses. Negative rebound, negative guarding EXTREMITIES: No edema, pulses are equal bilaterally. No cyanosis or clubbing NEUROLOGY: Mood and affect appear appropriate. Cranial nerves II through XII grossly intact. Moving all extremities, speech is clear Urinary Catheter: No Vascular Central Line Catheter: No A/P Assessment and Plan Right lung masslike consolidation with history of lung carcinoma CT of the abdomen does indicate moderate size right pleural effusion with atelectasis compression Status post thoracentesis By light's criteria patient has exudative pleural effusion, possible empyema versus cancer Culture indicates no growth for 48 hours Cytology indicated mesothelial cells, neutrophils and lymphocytes are present , negative for malignant cells Continue cefepime, Zithromax Prepared Foods Team Leader following the patient Gastric outlet obstruction, pyloric stenosis Possible paraneoplastic syndrome GI following the patient Endoscopy was performed which did show severe erosive gastritis, pyloric stenosis Upper GI study had been performed, please see above for results Gastric emptying study was performed which was significantly abnormal with delayed emptying without any response to Reglan Discussed with boat assembler who indicated patient will require repeat EGD with pyloric balloon dilatation Copper Miner recommending erythromycin before meals Chronic obstructive pulmonary disease Continue O2 supplementation maintain O2 sats greater 92% Continue Symbicort Continue duo nebs Diabetes Accu-Cheks with sliding scale insulin Physical deconditioning Physical therapy evaluated patient and recommending rehabilitation facility DVT prevention Sequential compression devices Discharge Planning Case management consulted for rehabilitation placement. Patient has been accepted at [facility]. Awaiting clearance from sail finisher machine and boat assembler Alexis Huntley Dec 16, 2017 09:23
[2017-12-16] MEDS ORDERED: METOCLOPRAMIDE HCL 10 MG/2 ML VIAL IV ONE (10:48)
--- NOTE | 2017-12-16 11:35 | RADRPT ---
EXAM DATE/TIME: 12/16/2017 09:01 [facility] COMPARISON: No previous studies available for comparison. INDICATIONS : Abdominal pain with nausea and vomiting. DOSE: 1.0 mCi Tc99m Sulfur Colloid Labeled Whole egg PO MEDICATONS: 1.) 5 mg Reglan IV at 90 minutes IMAGIN hrs MEDICAL HISTORY : Diabetes mellitus type 2. Chronic obstructive pulmonary disease. Lung cancer. SURGICAL HISTORY : Ankle surgery. ENCOUNTER: Initial ACUITY: 3 days PAIN SCALE: 4/10 LOCATION: Abdomen. TECHNIQUE: Following the oral ingestion of radiotracer-labeled meal, dynamic sequential images in the ICELANDIC projec tion were acquired with simultaneous computer acquisition. The data set was decay-corrected. FINDINGS: LAG PHASE: There is 20 minutes before onset of gastric emptying. EMPTYING: Gastric emptying kinetics are linear. The decay-corrected, back-extrapolated half-time of emptying i s 113 minutes. (Normal for this lab is 45- 90 minutes.) INTERVENTION: Reglan was given at 90 minutes with no response. CONCLUSION: 1. Abnormal gastric emptying with T. one half of approximately 13 minutes. 2. No response to Reglan. Alfredo Mack MD on December 16, 2017 at 11:31 Board Certified Radiologist. This report was verified electronically.
[2017-12-16] MEDS: CEFEPIME INJ 2,000 MG in SODIUM CHLORIDE 0.9% INJ 100 ML IV SCH ×2 (11:43→22:54)
[2017-12-16 12:30] VITALS: BP 100/58; PULSE 98; RESP 20; TEMP 97; O2SAT 95
[2017-12-16 16:00] VITALS: BP 99/55; PULSE 88; RESP 18; TEMP 98; O2SAT 94
--- NOTE | 2017-12-16 17:22 | HHI.PR ---
Subjective Remarks 72 YOWM with metastatic ca, COPD, Pl eff had TC Breathing better feels hungry Denies sob Objective Vital Signs Vital Signs Date Time Temp Pulse Resp B/P (MAP) Pulse Ox O2 Delivery O2 Flow Rate FiO2 12/16/17 12:30 97.0 98 20 100/58 (72) 95 12/16/17 08:00 97.0 82 18 83/53 (63) 94 12/16/17 00:00 96.3 76 20 118/63 (81) 98 12/15/17 20:45 97 21 12/15/17 20:00 96.5 84 20 91/55 (67) 96 I/O 12/15/17 12/15/17 12/15/17 12/16/17 12/16/17 12/16/17 07:00 15:00 23:00 07:00 15:00 23:00 Intake Total 636 ml 1020 ml 1078 ml Output Total 500 ml 750 ml 950 ml Balance 136 ml 270 ml 128 ml Intake Oral 1020 ml 480 ml IV Total 636 ml 598 ml Output Urine Total 500 ml 750 ml 950 ml # Voids 2 # Bowel Movements 1 0 Result Diagram: 12/16/17 0610 12/16/17 0610 Objective Remarks GENERAL: MBMN WM, NAD SKIN: Warm and dry. HEAD: Normocephalic. EYES: No scleral icterus. No injection or drainage. NECK: Supple, trachea midline. No JVD or lymphadenopathy. CARDIOVASCULAR: Regular rate and rhythm without murmurs, gallops, or rubs. RESPIRATORY: Breath sounds equal bilaterally. No accessory muscle use. GASTROINTESTINAL: Abdomen soft, non-tender, nondistended. MUSCULOSKELETAL: No cyanosis, or edema. BACK: Nontender without obvious deformity. No CVA tenderness. A/P Assessment and Plan IMPRESSION: 1. Right perihilar infiltrate. 2. Small right pleural effusion. 3. Chronic obstructive pulmonary disease. 4. Nicotine use. 5. History of small cell carcinoma of the lung, status post chemotherapy and radiation treatment. 6. Nausea, vomiting has resolved. PLAN: Aerosol nebs Cont Abx Stable on RA GI GALINDO underway Stable from pulm standpoint Jordi Altamirano MD Dec 16, 2017 17:22
[2017-12-16] MEDS: ERYTHROMYCIN ETHYLSUCCINATE 200 MG/5 ML SUSP 100 ML BOTTLE PO SCH (17:23)
[2017-12-16 20:00] VITALS: BP 102/66; PULSE 89; RESP 20; TEMP 97.4; O2SAT 96
[2017-12-16] MEDS: DEXT 5%-NACL 0.9% 1000 ML INJ 1,000 ML IV SCH (21:45)
[2017-12-16] MEDS: TAMSULOSIN HCL 0.4 MG CAP PO SCH (21:46)
[2017-12-17] VITALS: BP 105/65; PULSE 83; RESP 20; TEMP 97.2; O2SAT 97
[2017-12-17 08:00] VITALS: BP 99/55; PULSE 61; RESP 18; TEMP 97; O2SAT 98
[2017-12-17] MEDS: INSULIN ASPART SUPPLEMENTAL SCALE SQ SCH ×4 (08:00→21:00)
[2017-12-17] MEDS: ERYTHROMYCIN ETHYLSUCCINATE 200 MG/5 ML SUSP 100 ML BOTTLE PO SCH ×3 (08:18→17:39)
[2017-12-17] MEDS: BUDESONIDE-FORMOTEROL 80/4.5 MCG INHALER INH SCH ×2 (08:18→21:20)
[2017-12-17] MEDS: SODIUM CHLORIDE 0.9% FLUSH 10 ML FLUSH IV FLUSH SCH ×2 (08:18→21:14)
[2017-12-17] MEDS: FERROUS SULFATE 325 MG (65 MG ELEMENTAL IRON) TAB PO SCH (08:20)
--- NOTE | 2017-12-17 08:59 | HHI.PR ---
Subjective Remarks Patient seen and examined today for follow-up on right lung mass, pleural effusion, pyloric stenosis, gastric outlet obstruction. Patient laying in bed comfortable. Denies any new complaints today. He states "he is alive". Discussed with him the plan of action in order to have the pyloric stenosis dilated on Tuesday then possible discharge after that. Patient is enthusiastic about that plan. Objective Vitals Vital Signs Date Time Temp Pulse Resp B/P (MAP) Pulse Ox O2 Delivery O2 Flow Rate FiO2 12/17/17 08:00 97.0 61 18 99/55 (70) 98 12/17/17 00:00 97.2 83 20 105/65 (78) 97 12/16/17 20:00 97.4 89 20 102/66 (78) 96 12/16/17 16:00 98.0 88 18 99/55 (70) 94 12/16/17 12:30 97.0 98 20 100/58 (72) 95 I/O 12/16/17 12/16/17 12/16/17 12/17/17 12/17/17 12/17/17 07:00 15:00 23:00 07:00 15:00 23:00 Intake Total 1078 ml 460 ml Output Total 950 ml 600 ml Balance 128 ml -140 ml Intake Oral 480 ml 60 ml IV Total 598 ml 400 ml Output Urine Total 950 ml 600 ml # Voids 3 # Bowel Movements 0 Result Diagram: 12/16/17 0610 12/16/17 0610 Objective Remarks GENERAL: Well-developed, cachectic, in no acute distress. alert and orientated HEENT: Head is normocephalic without any lesions or masses noted. Facial features are symmetric. Eyes: Extraocular muscles are intact. Conjunctivae were clear. NECK: Supple without any masses. Trachea midline no deviation. No JVD, CARDIAC: Regular rhythm, regular rate. S1/S2 are heard. No murmurs gallops or rubs. LUNGS: Clear to auscultation bilaterally. No wheeze, rhonchi or rales. No use of accessory muscles on inspiration or expiration. ABDOMEN: Soft, nontender. Nondistended. Bowel sounds heard in all 4 quadrants. No organomegaly or masses. Negative rebound, negative guarding EXTREMITIES: No edema, pulses are equal bilaterally. No cyanosis or clubbing NEUROLOGY: Mood and affect appear appropriate. Cranial nerves II through XII grossly intact. Moving all extremities, speech is clear Urinary Catheter: No Vascular Central Line Catheter: No A/P Assessment and Plan Right lung masslike consolidation with history of lung carcinoma CT of the abdomen does indicate moderate size right pleural effusion with atelectasis compression Status post thoracentesis By light's criteria patient has exudative pleural effusion, possible empyema versus cancer Culture indicates no growth for 48 hours Cytology indicated mesothelial cells, neutrophils and lymphocytes are present , negative for malignant cells consider changing antibiotics to p.o. will discuss with landscaping supervisor, who indicated OK to switch to PO meds Discontinue cefepime, change to PO Cipro for 5 more days Metal Spinner following the patient Gastric outlet obstruction, pyloric stenosis Possible paraneoplastic syndrome GI following the patient Endoscopy was performed which did show severe erosive gastritis, pyloric stenosis Upper GI study had been performed, please see above for results Gastric emptying study was performed which was significantly abnormal with delayed emptying without any response to Reglan Discussed with supervisor maintenance who plans on doing an EGD with pyloric balloon dilatation tomorrow Public Affairs Specialist recommending erythromycin before meals Chronic obstructive pulmonary disease Continue O2 supplementation maintain O2 sats greater 92% Continue Symbicort Continue duo nebs Diabetes Accu-Cheks with sliding scale insulin Physical deconditioning Physical therapy evaluated patient and recommending rehabilitation facility DVT prevention Sequential compression devices Discharge Planning Case management consulted for rehabilitation placement. Patient has been accepted at [facility]. Awaiting clearance from landscaping supervisor and supervisor maintenance Alexis Huntley Dec 17, 2017 08:59
[2017-12-17] MEDS: CIPROFLOXACIN SUSP 500 MG/5 ML 100 ML BOTTLE PO SCH ×2 (11:46→21:19)
--- NOTE | 2017-12-17 11:48 | HHI.GIFU ---
Subjective Remarks Patient is awake and oriented still general fatigue, tolerating full liquid but that's about it no solid. Gen. weakness Objective Vitals I&O Vital Signs Date Time Temp Pulse Resp B/P (MAP) Pulse Ox O2 Delivery O2 Flow Rate FiO2 12/17/17 08:00 97.0 61 18 99/55 (70) 98 12/17/17 00:00 97.2 83 20 105/65 (78) 97 12/16/17 20:00 97.4 89 20 102/66 (78) 96 12/16/17 16:00 98.0 88 18 99/55 (70) 94 12/16/17 12:30 97.0 98 20 100/58 (72) 95 I/O 12/16/17 12/16/17 12/16/17 12/17/17 12/17/17 12/17/17 07:00 15:00 23:00 07:00 15:00 23:00 Intake Total 1078 ml 460 ml 510 ml Output Total 950 ml 600 ml Balance 128 ml -140 ml 510 ml Intake Oral 480 ml 60 ml 300 ml IV Total 598 ml 400 ml 210 ml Output Urine Total 950 ml 600 ml # Voids 3 # Bowel Movements 0 Laboratory Date/Time Source Procedure Growth Status 12/14/17 08:20 Fluid Pleural Fluid Gram Stain - Final Complete 12/14/17 08:20 Fluid Pleural Fluid Body Fluid Culture - Final NO GROWTH IN 72 HRS.--AEROBICALLY OR ... Complete Physical Exam HEENT: Pupils round and reactive to light; normocephalic; atraumatic; no jaundice. Throat is clear. NECK: Neck is supple, no JVD, no lymphadenopathy. CHEST: Chest is clear to auscultation and percussion. CARDIAC: Regular rate and rhythm with no murmur gallop or rubs. ABDOMEN: Soft, nondistended, nontender; no hepatosplenomegaly; bowel sounds are present in all four quadrants. EXTREMITIES: No clubbing, cyanosis, or edema. SKIN: Normal; no rash; no jaundice. SENIOR SALES CONSULTANT: No focal deficits; alert and oriented times three. Assessment and Plan Assessment: (1) Gastric out let obstruction ICD Codes: K31.1 - Adult hypertrophic pyloric stenosis Status: Chronic (2) Gastroparesis ICD Codes: K31.84 - Gastroparesis Status: Chronic Plan 1. Patient symptoms and CT scan findings are suggestive of possibility of gastroparesis or gastric outlet obstruction. Most likely pyloric stenosis, we will plan on doing upper endoscopy with balloon dilation of the pylorus tomorrow with anesthesia available Continue full liquid diet for now 2.In view of past history of small cell lung cancer, the gastroparesis may be related to paraneoplastic syndrome 3. Gastric outlet obstruction possible in view of past history of peptic ulcer disease. Metastases to be stomach is also possible Patient aware and consented for the procedure Leydi Mas MD Dec 17, 2017 11:48
[2017-12-17 12:00] VITALS: BP 100/58; PULSE 83; RESP 18; TEMP 96.9; O2SAT 98
[2017-12-17] MEDS: DEXT 5%-NACL 0.9% 1000 ML INJ 1,000 ML IV SCH (12:56)
[2017-12-17 16:00] VITALS: BP 97/59; PULSE 76; RESP 16; TEMP 97.6; O2SAT 96
[2017-12-17 20:00] VITALS: BP 103/64; PULSE 101; RESP 20; TEMP 96.5; O2SAT 97
[2017-12-17 20:27] VITALS: O2SAT 98
[2017-12-17] MEDS: TAMSULOSIN HCL 0.4 MG CAP PO SCH (21:14)
[2017-12-18] VITALS: BP 111/63; PULSE 81; RESP 20; TEMP 97.7; O2SAT 96
[2017-12-18] MEDS: DEXT 5%-NACL 0.9% 1000 ML INJ 1,000 ML IV SCH
[2017-12-18 06:31] VITALS: BP 99/72; PULSE 70; RESP 20; TEMP 97.6; O2SAT 95
--- NOTE | 2017-12-18 07:39 | HHI.PR ---
Subjective Remarks Patient seen and examined today. Patient denies any new complaints. When asked how he was doing, he said "I woke up". Plans for endoscopy today. Vital signs are stable, patient remains afebrile. Patient resting comfortably on room air Objective Vitals Vital Signs Date Time Temp Pulse Resp B/P (MAP) Pulse Ox O2 Delivery O2 Flow Rate FiO2 12/18/17 06:31 97.6 70 20 99/72 (81) 95 12/18/17 00:00 97.7 81 20 111/63 (79) 96 12/17/17 20:27 98 21 12/17/17 20:00 96.5 101 20 103/64 (77) 97 12/17/17 16:00 97.6 76 16 97/59 (72) 96 12/17/17 12:00 96.9 83 18 100/58 (72) 98 12/17/17 08:00 97.0 61 18 99/55 (70) 98 I/O 12/17/17 12/17/17 12/17/17 12/18/17 12/18/17 12/18/17 07:00 15:00 23:00 07:00 15:00 23:00 Intake Total 460 ml 1185 ml 904 ml Output Total 600 ml 350 ml 550 ml Balance -140 ml 1185 ml 554 ml -550 ml Intake Oral 60 ml 975 ml 400 ml IV Total 400 ml 210 ml 504 ml Output Urine Total 600 ml 350 ml 550 ml # Voids 1 1 # Bowel Movements 0 Result Diagram: 12/16/17 0610 12/16/17 0610 Objective Remarks GENERAL: Well-developed, cachectic, in no acute distress. alert and orientated HEENT: Head is normocephalic without any lesions or masses noted. Facial features are symmetric. Eyes: Extraocular muscles are intact. Conjunctivae were clear. NECK: Supple without any masses. Trachea midline no deviation. No JVD, CARDIAC: Regular rhythm, regular rate. S1/S2 are heard. No murmurs gallops or rubs. LUNGS: Clear to auscultation bilaterally. No wheeze, rhonchi or rales. No use of accessory muscles on inspiration or expiration. ABDOMEN: Soft, nontender. Nondistended. Bowel sounds heard in all 4 quadrants. No organomegaly or masses. Negative rebound, negative guarding EXTREMITIES: No edema, pulses are equal bilaterally. No cyanosis or clubbing NEUROLOGY: Mood and affect appear appropriate. Cranial nerves II through XII grossly intact. Moving all extremities, speech is clear Urinary Catheter: No Vascular Central Line Catheter: No A/P Assessment and Plan Right lung masslike consolidation with history of lung carcinoma CT of the abdomen does indicate moderate size right pleural effusion with atelectasis compression Status post thoracentesis By light's criteria patient has exudative pleural effusion, possible empyema versus cancer Culture indicates no growth for 48 hours Cytology indicated mesothelial cells, neutrophils and lymphocytes are present , negative for malignant cells Continue Cipro for total 5 days Siene Maker following the patient Gastric outlet obstruction, pyloric stenosis Possible paraneoplastic syndrome GI following the patient Endoscopy was performed which did show severe erosive gastritis, pyloric stenosis Upper GI study had been performed, please see above for results Gastric emptying study was performed which was significantly abnormal with delayed emptying without any response to Reglan Grain Elevator Operator recommending erythromycin before meals Plans for repeat EGD with pyloric balloon dilatation today Chronic obstructive pulmonary disease Continue O2 supplementation maintain O2 sats greater 92% Continue Symbicort Continue duo nebs Diabetes Accu-Cheks with sliding scale insulin Physical deconditioning Physical therapy evaluated patient and recommending rehabilitation facility DVT prevention Sequential compression devices Discharge Planning Case management consulted for rehabilitation placement. Patient has been accepted at [facility]. Awaiting clearance from toggle press operator and proofer apprentice Alexis Huntley Dec 18, 2017 07:38
[2017-12-18] MEDS: INSULIN ASPART SUPPLEMENTAL SCALE SQ SCH ×2 (08:00→12:00)
--- NOTE | 2017-12-18 08:45 | PD.PROCEDR ---
GI Procedure PROCEDURE PERFORMED Upper endoscopy with balloon dilation of the pylorus INDICATION FOR PROCEDURE Pyloric stenosis PROCEDURE: The procedure, risks and benefits were discussed with Mr. Bergman and informed consent was obtained. Anesthesia sedated him with Diprivan. He was placed in the left lateral decubitus position. EGD: The Pentax videoscope was introduced through the oropharynx and advanced to the second portion of the duodenum under direct visualization. Retroflexion was performed in the stomach. The pylorus was Dilated with balloon size 15 mm, 18 mm, 20 mm under fluoroscopy without any immediate complication FINDINGS: Grade C esophagitis Gastritis with few erosions in the body of the stomach with gastropathy Pyloric stenosis dilated as above ESTIMATED BLOOD LOSS: None SPECIMENS REMOVED: None COMPLICATIONS: None FINDINGS: Grade C esophagitis Gastritis with few erosions in the body of the stomach with gastropathy Pyloric stenosis dilated as above PLAN: Soft diet Continue PPI Supportive care Antiemetics as needed Leydi Mas MD Dec 18, 2017 08:45
--- NOTE | 2017-12-18 08:47 | HHI.GIFU ---
Subjective Remarks Patient laying in bed comfortably, he still complain of some dyspepsia, feel that this food feel his stomach easily Objective Vitals I&O Vital Signs Date Time Temp Pulse Resp B/P (MAP) Pulse Ox O2 Delivery O2 Flow Rate FiO2 12/18/17 06:31 97.6 70 20 99/72 (81) 95 12/18/17 00:00 97.7 81 20 111/63 (79) 96 12/17/17 20:27 98 21 12/17/17 20:00 96.5 101 20 103/64 (77) 97 12/17/17 16:00 97.6 76 16 97/59 (72) 96 12/17/17 12:00 96.9 83 18 100/58 (72) 98 I/O 12/17/17 12/17/17 12/17/17 12/18/17 12/18/17 12/18/17 07:00 15:00 23:00 07:00 15:00 23:00 Intake Total 460 ml 1185 ml 904 ml Output Total 600 ml 350 ml 550 ml Balance -140 ml 1185 ml 554 ml -550 ml Intake Oral 60 ml 975 ml 400 ml IV Total 400 ml 210 ml 504 ml Output Urine Total 600 ml 350 ml 550 ml # Voids 1 1 # Bowel Movements 0 Laboratory Date/Time Source Procedure Growth Status 12/14/17 08:20 Fluid Pleural Fluid Gram Stain - Final Complete 12/14/17 08:20 Fluid Pleural Fluid Body Fluid Culture - Final NO GROWTH IN 72 HRS.--AEROBICALLY OR ... Complete Physical Exam HEENT: Pupils round and reactive to light; normocephalic; atraumatic; no jaundice. Throat is clear. NECK: Neck is supple, no JVD, no lymphadenopathy. CHEST: Chest is clear to auscultation and percussion. CARDIAC: Regular rate and rhythm with no murmur gallop or rubs. ABDOMEN: Soft, nondistended, mild midepigastric tenderness; no hepatosplenomegaly; bowel sounds are present in all four quadrants. EXTREMITIES: No clubbing, cyanosis, or edema. SKIN: Normal; no rash; no jaundice. ARTIFICIAL LIMB FITTER: No focal deficits; alert and oriented times three. Assessment and Plan Assessment: (1) Gastric out let obstruction ICD Codes: K31.1 - Adult hypertrophic pyloric stenosis Status: Chronic (2) Gastroparesis ICD Codes: K31.84 - Gastroparesis Status: Chronic Plan 1. Patient symptoms and CT scan findings are suggestive of possibility of gastroparesis or gastric outlet obstruction. Most likely pyloric stenosis, we will plan on doing upper endoscopy with balloon dilation of the pylorus tomorrow with anesthesia available Continue full liquid diet for now 2.In view of past history of small cell lung cancer, the gastroparesis may be related to paraneoplastic syndrome 3. Gastric outlet obstruction possible in view of past history of peptic ulcer disease. Metastases to be stomach is also possible Patient aware and consented for the procedure 12/18/2017 patient is doing okay, no new complain, he had an upper endoscopy for dilation of the pylorus today under fluoroscopy FINDINGS: Grade C esophagitis Gastritis with few erosions in the body of the stomach with gastropathy Pyloric stenosis dilated as above PLAN: Soft diet Continue PPI Supportive care Antiemetics as needed Leydi Mas MD Dec 18, 2017 08:47
[2017-12-18] MEDS ORDERED: LACTATED RINGER'S 1000 ML INJ 1,000 ML ONE (09:08)
[2017-12-18] MEDS ORDERED: DO NOT ADM ANY ANTICOAGULANT DRUGS PRN (09:30)
[2017-12-18 09:45] VITALS: BP 111/77; PULSE 77; RESP 18; TEMP 96.8; O2SAT 98
[2017-12-18] MEDS: SODIUM CHLORIDE 0.9% FLUSH 10 ML FLUSH IV FLUSH SCH (09:47)
[2017-12-18] MEDS: BUDESONIDE-FORMOTEROL 80/4.5 MCG INHALER INH SCH (09:47)
[2017-12-18] MEDS: ERYTHROMYCIN ETHYLSUCCINATE 200 MG/5 ML SUSP 100 ML BOTTLE PO SCH ×2 (09:47→12:00)
[2017-12-18] MEDS: FERROUS SULFATE 325 MG (65 MG ELEMENTAL IRON) TAB PO SCH (09:48)
[2017-12-18] MEDS: CIPROFLOXACIN SUSP 500 MG/5 ML 100 ML BOTTLE PO SCH (09:48)
[2017-12-18 12:00] VITALS: BP 103/71; PULSE 89; RESP 18; TEMP 96.7; O2SAT 97
--- NOTE | 2017-12-18 13:48 | HHI.DCPOC ---
Discharge Care Plan Diagnosis: (1) Gastric out let obstruction (2) Gastroparesis Goals to Promote Your Health * To prevent worsening of your condition and complications * To maintain your health at the optimal level Directions to Meet Your Goals Take your medications as prescribed Follow your dietary instruction Follow activity as directed Keep your appointments as scheduled Take your immunizations and boosters as scheduled If your symptoms worsen call your PCP, if no PCP go to Urgent Care Center or Emergency Room Smoking is Dangerous to Your Health. Avoid second hand smoke Call the 24-hour hour crisis hotline for domestic abuse at Alexis Huntley Dec 18, 2017 13:48
[2017-12-18] MEDS ORDERED: NOVOLOGSS SQ (14:11)
[2017-12-18] MEDS ORDERED: CIPR500S2 PO (14:11)
[2017-12-18] MEDS ORDERED: ERYT200S2 PO (14:11)
--- NOTE | 2017-12-18 14:24 | HHI.DS ---
Discharge Summary Admission Date Dec 13, 2017 at 10:45 Discharge Date: Dec 18, 2017 Admitting Diagnosis Intractable nausea vomiting Abdominal pain Right lung masslike consolidation (1) Mass of right lung ICD Code: R91.8 - Other nonspecific abnormal finding of lung field (2) Gastric out let obstruction ICD Code: K31.1 - Adult hypertrophic pyloric stenosis Status: Chronic (3) Gastroparesis ICD Code: K31.84 - Gastroparesis Status: Chronic Procedures EGD: The Pentax videoscope was introduced through the oropharynx and advanced to the second portion of the duodenum under direct visualization. Retroflexion was performed in the stomach. The pylorus was Dilated with balloon size 15 mm, 18 mm, 20 mm under fluoroscopy without any immediate complication FINDINGS: Grade C esophagitis Gastritis with few erosions in the body of the stomach with gastropathy Pyloric stenosis dilated as above Brief History - From Admission History from patient, ER physician notes, interview of medical records. Patient reported that he came to the hospital because he has been throwing up a , about 8-9 times a day for the past 3 days. He reports that his vomitus was brown in color. Denies any abdominal pain but then stated that he has severe discomfort in his abdomen. He kept stating that he can't stand the pain that he just cannot stand discomfort in his abdomen. He reports of headache. He was hiccuping during my interview as well. He denies any diarrhea. Denies any blood in his stool or in his urine. He reports that his last bowel movement was about 2 days ago. He then stated again that he was constipated for the past 5-6 days and finally his knees gave him laxatives after which he moved his bowels 2 days ago. Patient denies any fever. Denies dyspnea. Denies any chest pain/palpitations/syncopal episodes. He then sometimes stated that he has been weak and he is dizzy because of this. Denies any pain or burning on urination. He reports of frequent urination and that he cannot control his urine. He has been incontinence. He states that he has been in diapers because of this for the past 3 months since he had his right hip fracture. He states he used to smoke about 2 packs a day but now smoking only about 2 cigarettes a week. He reports a chronic cough which is intermittent and mild. Reports of history of lung cancer for which he was getting treated. He states that he has been well for the past 3 months and last dose of chemotherapy was 3 months ago. Patient initially presented to [place] emergency room. He was transferred from there to [facility] for further workup. CBC/BMP: 12/16/17 0610 12/16/17 0610 Significant Findings Laboratory Tests Test 12/16/17 06:10 Hemoglobin 12.5 GM/DL (13.0-17.0) Hematocrit 38.6 % (39.0-51.0) Mean Corpuscular Hemoglobin 26.5 PG (27.0-34.0) Eosinophils (%) (Auto) 5.1 % (0.0-4.0) Random Glucose 110 MG/DL (74-106) Calcium Level 8.2 MG/DL (8.5-10.1) Potassium Level 3.4 MEQ/L (3.5-5.1) Chloride Level 109 MEQ/L (98-107) Imaging Last Impressions Gastric Emptying Nuclear Medicine 12/16/17 0600 Signed Impressions: Service Date/Time: Saturday, December 16, 2017 09:01 - CONCLUSION: 1. Abnormal gastric emptying with T. one half of approximately 13 minutes. 2. No response to Reglan. Alfredo Mack MD Upper GI Series 12/15/17 0000 Signed Impressions: Service Date/Time: November 14:04 - CONCLUSION: 1. Limited study secondary to the patient's immobility as well as the patient's inability to drink the barium. 2. Smooth fold thickening involving the first and second portion the duodenum with less pronounced rugal fold thickening. Differential diagnostic considerations would include an acute inflammatory process involving the stomach and duodenum versus an infiltrating process to include malignancy. I favor the former. 3. Pyloric stenosis without discrete mass. 4. Global hypokinesia with significant delay in the gastric emptying secondary to the combination of pyloric stenosis as well as the global hypokinesia. Celestino Larios Jr., MD Thoracentesis 12/14/17 0800 Signed Impressions: Service Date/Time: Thursday, December 14, 2017 08:00 - CONCLUSION: Uncomplicated CT-guided thoracentesis. Jluis Paulson MD Chest Ultrasound 12/13/17 0000 Signed Impressions: Service Date/Time: Wednesday, December 13, 2017 11:43 - CONCLUSION: Right pleural effusion confirmed sonographically and measured/marked for thoracentesis. Hitesh Breen MD PE at Discharge GENERAL: Well-developed, cachectic, in no acute distress. alert and orientated HEENT: Head is normocephalic without any lesions or masses noted. Facial features are symmetric. Eyes: Extraocular muscles are intact. Conjunctivae were clear. NECK: Supple without any masses. Trachea midline no deviation. No JVD, CARDIAC: Regular rhythm, regular rate. S1/S2 are heard. No murmurs gallops or rubs. LUNGS: Clear to auscultation bilaterally. No wheeze, rhonchi or rales. No use of accessory muscles on inspiration or expiration. ABDOMEN: Soft, nontender. Nondistended. Bowel sounds heard in all 4 quadrants. No organomegaly or masses. Negative rebound, negative guarding EXTREMITIES: No edema, pulses are equal bilaterally. No cyanosis or clubbing NEUROLOGY: Mood and affect appear appropriate. Cranial nerves II through XII grossly intact. Moving all extremities, speech is clear Hospital Course 72-year-old male who originally presented to the hospital from [facility] because of intractable nausea and vomiting and abnormal x-ray. Patient was admitted to [facility] with GI consultation and pulmonary consultation. Patient did undergo ultrasound-guided thoracentesis which did produce fluid that appeared to be transient A. fib but did meet 1 criteria for exudative. However cultures remain negative, pathology did not indicate any malignancy. Patient was continued on antibiotics for full round for surrounding consolidation around the pleural effusion mass area. Oil And Gas Lease Pumper follow the patient during his stay in the hospital. Patient was resting comfortably on room air during his entire stay. No episodes of any hypoxia. In reference to the patient's nausea, vomiting, abdominal pain. Patient had full workup done with initial EGD which did show significant pyloric stenosis, gastritis, ulcerations with biopsies were taken. Biopsies of the pylorus showed mild peptic duodenitis, gastric fundus showed chronic gastritis, esophageal biopsy indicated chronic inflammation no evidence of metaplasia or dysplasia. Patient did undergo upper GI series which did indicate gastric outlet obstruction and dysmotility. No mass was appreciated. Gastric emptying study was performed with also indicated abnormality with delayed emptying of 213 minutes without any response to Reglan. Patient was then started on erythromycin before meals for gastric emptying. Patient underwent a second EGD for pyloric stenosis dilatation. Patient was dilated up 3 sizes from 15 mm, 18 mm and then to 20 mm. Patient tolerating meals at this time. No GI upset or recurrent nausea or vomiting. Patient clinically stable at this time. Patient has been accepted at [facility] and plans for discharge once arrangements made by case management. Pt Condition on Discharge: Stable Discharge Disposition: Discharge to SNF Discharge Time: > 30 minutes Discharge Instructions DIET: Follow Instructions for: Diabetic Diet Speech Therapy-Diet Recommends: Soft Additional Diet Instructions: Advance diet as tolerated Activities you can perform: Weight Bearing as Benny Follow up Referrals: Gastroenterology - 2 Weeks PCP Follow-up - 1 Week Pulmonology - 2 Weeks with Jordi Altamirano MD New Medications: Ciprofloxacin Liq (Cipro Liq) 500 Mg/5 Ml Susp 500 MG PO Q12HR for Infection for 4 Days, BOTTLE Erythromycin Ethylsuccinate Liq (E.E.S. Liq) 200 Mg/5 Ml Susp 200 MG PO TIDAC for Gastroparesis for 30 Days, BOTTLE Insulin Aspart Inj (Novolog Inj) 100 Unit/Ml Inj 1 UNIT SQ ACHS SLIDING SCALE for Blood Sugar Management for 30 Days, INJECTION Continued Medications: Budesonide-Formoterol Inh (Symbicort Inh) 80-4.5 Mcg/Act Aero 1 PUFF INH Q12HR for Asthma Management, #1 INHALER 0 Refills Doxazosin ER (Cardura XL) 8 Mg Christa 8 MG PO DAILY for BPH, #30 TAB [address] (Ferrous Sulfate DR) 324 Mg Tabdr 324 MG PO DAILY for Nutritional Supplement, #30 TAB 0 Refills Tamsulosin (Tamsulosin) 0.4 Mg Cap 0.4 MG PO HS for Manage Prostate Problems, #60 CAP 0 Refills Discontinued Medications: [Insulin Pen] () Alexis Huntley Dec 18, 2017 14:24
--- NOTE | 2017-12-19 12:58 | RADRPT ---
EXAM DATE/TIME: 12/17/2017 21:20 [place] COMPARISON: CT ABDOMEN & PELVIS W CONTRAST, December 12, 2017, 20:53. UPPER GI SERIES WITH KUB TICKET COUNTER, December 15 8, 14:04. INDICATIONS : Upper endoscopy. Pyloric stenosis. FLUORO TIME: 2.15 minutes IMAGE COUNT: 3 CONTRAST: Instilled by Ordering Physician MEDICAL HISTORY : Carcinoma, lung. Venous insufficiency. Chronic obstructive pulmonary disease. Diabetes mellitus type 2. Gastritis. SURGICAL HISTORY : Cholecystectomy. Port placement. ENCOUNTER: Initial ACUITY: 1 day PAIN SCORE: Non-responsive. LOCATION: abdomen. FINDINGS: Intraoperative examination demonstrates balloon dilation of the pylorus. CONCLUSION: 1. Balloon dilation of the pylorus as above. Todd Cottrell MD on December 19, 2017 at 12:53 Board Certified Radiologist. This report was verified electronically.
== END 2017-12-18 15:41 | DRG 380 ==
LOC: PHEDDLT 08:18 → PH3A 12-13 08:28 → OBSVTOIN 12-13 10:45
PROVIDERS: ADMIT Hospitalist; ATTEND Hospitalist
PROC: 0DB58ZX Excision of Esophagus, Via Natural or Artificial Opening Endoscopic, Diagnostic (ICD-10-PCS; 2017-12-14)
PROC: 0DB68ZX Excision of Stomach, Via Natural or Artificial Opening Endoscopic, Diagnostic (ICD-10-PCS; 2017-12-14)
PROC: 0W993ZX Drainage of Right Pleural Cavity, Percutaneous Approach, Diagnostic (ICD-10-PCS; 2017-12-14)
PROC: 0D778ZZ Dilation of Stomach, Pylorus, Via Natural or Artificial Opening Endoscopic (ICD-10-PCS; principal; 2017-12-18 08:06)
DX: K31.1 Adult hypertrophic pyloric stenosis (principal); J18.9 Pneumonia, unspecified organism; J90 Pleural effusion, not elsewhere classified; R64 Cachexia; E11.9 Type 2 diabetes mellitus without complications; J44.0 Chronic obstructive pulmonary disease with (acute) lower respiratory infection; K31.84 Gastroparesis; Z87.11 Personal history of peptic ulcer disease; K20.9 Esophagitis, unspecified; K29.50 Unspecified chronic gastritis without bleeding; Z68.22 Body mass index [BMI] 22.0-22.9, adult; F17.210 Nicotine dependence, cigarettes, uncomplicated; N40.0 Benign prostatic hyperplasia without lower urinary tract symptoms; Z85.118 Personal history of other malignant neoplasm of bronchus and lung; Z92.21 Personal history of antineoplastic chemotherapy; Z92.3 Personal history of irradiation; Z23 Encounter for immunization
CPT/HCPCS: 32555; 71045; 74177; 74241; 76000; 76604; 78264; 80048; 80053; 82945; 82948; 83615; 83690; 83735; 84157; 84484; 85025; 85610; 85730; 87070; 87205; 88112; 88305; 88312; 89051; 90471; 90686; 90732; 93005; 94664; 96361; 96374; 96375; A9541; C1726; G0008; G0009; J0692; J1815; J2405; J2765; J7030; J7042; J7120; Q2038; Q9967